=== PATIENT | male | born 1965 | race Caucasian/White ===

== ENCOUNTER 2017-04-11 19:20 | Emergency (ER) | payer OTHER ==
[~2017-04-11] VITALS: Ht 167.6 cm; Wt 85.3 kg
[~2017-04-11 19:20] MED LIST: ALPR1TAB2 PO; AMLO1CAP PO; AMLO1CAP2 PO; CELE200C PO; ESCI10TA PO; ESCI20TA PO; ESOM40SU PO; HYDR-4100 PO; METF-716 PO; MIRT30TA PO; OLME1TAB23 PO; OLME20TA14 PO; TEMA30CA PO
[2017-04-11 19:32] VITALS: BP_SYST 127
[2017-04-11 21:00] VITALS: BP_SYST 120
== END 2017-04-11 21:00 | disposition home or self-care (01) ==
LOC: SED 19:20
DX: T23.201A Burn of second degree of right hand, unspecified site, initial encounter (principal); K21.9 Gastro-esophageal reflux disease without esophagitis; I10 Essential (primary) hypertension; E11.9 Type 2 diabetes mellitus without complications; F17.200 Nicotine dependence, unspecified, uncomplicated; Z71.6 Tobacco abuse counseling; Z79.899 Other long term (current) drug therapy; X19.XXXA Contact with other heat and hot substances, initial encounter; Y93.89 Activity, other specified; Y92.89 Other specified places as the place of occurrence of the external cause; Y99.8 Other external cause status
CPT/HCPCS: 99283

== ENCOUNTER 2021-03-05 15:38 | Emergency (ER) | payer OTHER ==
[~2021-03-05] VITALS: Ht 170.2 cm; Wt 102.1 kg
[~2021-03-05 15:38] MED LIST changes: +HYDR-3927 PO; -HYDR-4100 PO; -METF-716 PO; +METF-833 PO; +MIRT-115 PO; -MIRT30TA PO; +OLME20TA13 PO; -OLME20TA14 PO
[2021-03-05 15:56] VITALS: BP_SYST 142
[2021-03-05] MEDS ORDERED: BACITRACIN 1 GM OINT TP ONE ×2 (16:08→16:15)
[2021-03-05] MEDS ORDERED: CLIN300C12 PO (16:14)
[2021-03-05] MEDS ORDERED: DIPH-TET-PERTUS Vaccine 0.5 ML VIAL (ADACEL) I.M. ONE (16:15)
[2021-03-05 16:37] VITALS: BP_SYST 115
== END 2021-03-05 16:33 | disposition home or self-care (01) ==
LOC: SED 15:38
DX: T23.272A Burn of second degree of left wrist, initial encounter (principal); I10 Essential (primary) hypertension; E11.9 Type 2 diabetes mellitus without complications; K21.9 Gastro-esophageal reflux disease without esophagitis; Z79.899 Other long term (current) drug therapy; X10.2XXA Contact with fats and cooking oils, initial encounter; Y93.89 Activity, other specified; Y92.89 Other specified places as the place of occurrence of the external cause; Y99.8 Other external cause status
CPT/HCPCS: 90715; 99283

== ENCOUNTER 2021-03-08 13:56 | Emergency (ER) | payer OTHER ==
[~2021-03-08] VITALS: Ht 177.8 cm; Wt 83.9 kg
[~2021-03-08 13:56] MED LIST changes: +CLIN300C12 PO
--- NOTE | 2021-03-08 14:15 | NUR ---
Patient to ER bed H1 to gown for evaluation. Side rails up. Report given to STEPHANIE VALDEZ.
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
[2021-03-08] MEDS ORDERED: BACITRACIN 1 GM OINT TP ONE (14:30)
--- NOTE | 2021-03-08 14:31 | NUR ---
RIGHT WRISTED CLEANED WITH NS AND THEN BACATRACIAN OINTMENT TO SITE
[2021-03-08 14:33] VITALS: BP_SYST 137
[2021-03-08 14:39] LABS: BASOPHILS # (AUTO) 0.1 K/uL (0.0-0.2); EOSINOPHILS # (AUTO) 0.2 K/uL (0.0-0.4); EOSINOPHILS % (AUTO) 2.5 % (0.0-4.0); HEMOGLOBIN 14.5 g/dL (14.0-18.0); LYMPHOCYTES # (AUTO) 1.2 K/uL (1.0-5.5); LYMPHOCYTES % (AUTO) 17.5 % (20.5-51.5); MEAN CORPUSCULAR HEMOGLOBIN 29 pg (27-31); MEAN CORPUSCULAR HGB CONC 34 % (32-36); MEAN CORPUSCULAR VOLUME 87 fL (79.0-98.0); MONOCYTES # (AUTO) 0.8 K/uL (0.0-1.0); MONOCYTES % (AUTO) 11.3 % (1.7-9.3); NEUTROPHILS # (AUTO) 4.8 K/uL (1.8-7.7); NEUTROPHILS % (AUTO) 67.7 % (40.0-70.0); PLATELET COUNT (AUTO) 316 K/uL (130-430); RED BLOOD CELL COUNT(AUTO) 4.93 MIL/uL (4.2-6.2); RED CELL DISTRIBUTION WIDTH 14.8 % (9.0-15.0); WHITE BLOOD COUNT (AUTO) 7.1 K/uL (4.8-10.8)
[2021-03-08 15:13] LABS: ACETONE, SERUM NEGATIVE (NEGATIVE)
[2021-03-08 15:16] LABS: ANION GAP 5 (5-15); CALCIUM 9.4 mg/dL (8.4-11.0); CHLORIDE 104 mmol/L (98-107); CREATININE 0.89 mg/dL (0.55-1.30); GLUCOSE 114 mg/dL (70-99); POTASSIUM 4.6 mmol/L (3.5-5.1); SODIUM SERUM 137 mmol/L (136-145); UREA NITROGEN, BLOOD 17 mg/dL (8-21)
[2021-03-08 15:17] LABS: GFR AFRICAN AMERICAN 115 mL/min (>90)
[2021-03-08 15:21] LABS: ALANINE AMINOTRANSFERASE 49 U/L (12-78); ALBUMIN 3.8 g/dL (3.4-4.8); ASPARTATE AMINOTRANSFERASE 26 U/L (10-37); TOTAL BILIRUBIN 0.1 mg/dL (0.0-1.0)
[2021-03-08 15:31] LABS: C-REACTIVE PROTEIN QUANT < 0.2 mg/dL (0-0.5)
[2021-03-08] MEDS ORDERED: NEOM28.36 TP (15:36)
[2021-03-08 15:40] VITALS: BP_SYST 137
--- NOTE | 2021-03-08 15:41 | NUR ---
Patient given written and verbal discharge instructions and verbalizes understanding. ER MD discussed with patient the results and treatment provided. Patient in stable condition. ID arm band removed. Rx of BACATRACIAN given. Patient educated on pain management and to follow up with PMD. Pain Scale 0. Opportunity for questions provided and answered. Medication side effect fact sheet provided.
== END 2021-03-08 15:40 | disposition home or self-care (01) ==
LOC: SED 13:56
DX: T23.272A Burn of second degree of left wrist, initial encounter (principal); Z48.00 Encounter for change or removal of nonsurgical wound dressing; E11.9 Type 2 diabetes mellitus without complications; X19.XXXA Contact with other heat and hot substances, initial encounter; Y93.89 Activity, other specified; Y92.89 Other specified places as the place of occurrence of the external cause; Y99.8 Other external cause status
CPT/HCPCS: 36415; 80053; 82009; 85025; 86140; 99282; 99283

== ENCOUNTER 2021-12-01 15:25 | Emergency (ER) | payer OTHER ==
[~2021-12-01] VITALS: Ht 167.6 cm; Wt 99.8 kg
[2021-12-01 15:25] VITALS: BP_SYST 156
[~2021-12-01 15:25] MED LIST changes: +CLIN-142 PO; -CLIN300C12 PO; +NEOM28.36 TP
[2021-12-01 17:24] LABS: ANION GAP 10 (5-15); CALCIUM 10.1 mg/dL (8.4-11.0); CHLORIDE 101 mmol/L (98-107); CREATININE 0.89 mg/dL (0.55-1.30); GLUCOSE 109 mg/dL (70-99); POTASSIUM 3.8 mmol/L (3.5-5.1); SODIUM SERUM 137 mmol/L (136-145); UREA NITROGEN, BLOOD 11 mg/dL (8-21)
[2021-12-01 17:25] LABS: BASOPHILS % (AUTO) 0.7 % (0.0-2.0); EOSINOPHILS # (AUTO) 0.1 K/uL (0.0-0.4); EOSINOPHILS % (AUTO) 0.9 % (0.0-4.0); HEMATOCRIT 49.1 % (36-54); HEMOGLOBIN 16.1 g/dL (14.0-18.0); LYMPHOCYTES # (AUTO) 1.2 K/uL (1.0-5.5); LYMPHOCYTES % (AUTO) 17.9 % (20.5-51.5); MEAN CORPUSCULAR HEMOGLOBIN 27 pg (27-31); MEAN CORPUSCULAR HGB CONC 33 % (32-36); MEAN CORPUSCULAR VOLUME 81 fL (79.0-98.0); MONOCYTES % (AUTO) 14.2 % (1.7-9.3); NEUTROPHILS # (AUTO) 4.6 K/uL (1.8-7.7); NEUTROPHILS % (AUTO) 66.3 % (40.0-70.0); PLATELET COUNT (AUTO) 343 K/uL (130-430); RED BLOOD CELL COUNT(AUTO) 6.03 MIL/uL (4.2-6.2); RED CELL DISTRIBUTION WIDTH 15.8 % (9.0-15.0)
[2021-12-01 17:33] LABS: ALANINE AMINOTRANSFERASE 36 U/L (12-78); ALBUMIN 3.9 g/dL (3.4-4.8); ASPARTATE AMINOTRANSFERASE 20 U/L (10-37); TOTAL BILIRUBIN 0.3 mg/dL (0.0-1.0)
[2021-12-01 17:41] LABS: GFR AFRICAN AMERICAN 115 mL/min (>90)
[2021-12-01] MEDS ORDERED: LORazepam 1 MG TABLET PO ONE (17:45)
[2021-12-01] MEDS ORDERED: HYDROcodone/ACETAMIN 10-325 MG TAB PO ONE (19:15)
[2021-12-01] MEDS ORDERED: ASPIRIN 325 MG TABLET PO ONE (19:15)
[2021-12-01] MEDS ORDERED: ASPIRIN 325 MG TABLET ONE (19:42)
[2021-12-01 20:09] LABS: FREE T4 (FREE THYROXINE) 1.1 ng/dl (0.8-1.5); THYROID STIMULATING HORMONE 3.46 uIu/mL (0.36-3.74)
[2021-12-01] MEDS ORDERED: MIDAZOLAM HCL 5 MG/5 ML VIAL IVP ONE (23:45)
[2021-12-02 01:55] VITALS: BP_SYST 140
== END 2021-12-02 01:55 | disposition short-term general hospital (02) ==
LOC: SED 15:25
DX: R07.9 Chest pain, unspecified (principal); F41.9 Anxiety disorder, unspecified; R42 Dizziness and giddiness; E11.9 Type 2 diabetes mellitus without complications; I10 Essential (primary) hypertension; K21.9 Gastro-esophageal reflux disease without esophagitis; Z79.899 Other long term (current) drug therapy; Z20.822 Contact with and (suspected) exposure to COVID-19
CPT/HCPCS: 99285; 71045; 87426; 80053; 84439; 84443; 85025; 87040; 84484; 36415; 93005; 83605; 96374; J2250